=== PATIENT | male | born 1985 | race African-American/Black ===

== ENCOUNTER 2024-11-22 10:45 | Outpatient (CLI) | payer OTHER, SELFPAY ==
--- OUTSIDE RECORDS SUMMARY | 2024-10-14 03:20 | XMS_ITS ---
Author Organization Formerly [facility], [facility] Address [address] [place] [address] Care Team Providers Care Vp Ad Products And Planning Name Role Phone Jono Da Silva Primary Care Provider Naida DA SILVA Unavailable Unavailable Austin Palacios Unavailable [phone] REASON FOR VISIT fasting labs Encounters Encounter Location Date Provider Diagnosis [address] [place] [address] 10/14/2024 Austin Palacios Plan Of Treatment No Information Progress Notes * Eufemia HOGUEDOB:[birth year] (39 yo M)Acc No.[id number]:10/14/2024 UNLOCKED PROGRESS NOTE Patient: Eufemia JESUS Provider: Denise Palacios APN :1985 A ge:38 Y S ex:Male Date:10/14/2024 Address:[address] [place], [place] [id number] Pcp:Jono Da Silva Check In:07:53 AM 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 Fasting labs. * Medical History: Objective: * Vitals: Assessment: Plan: * Treatment: * * Electronic signature of Steven Palacios on 11/22/2024 at 11:30 AM CDT Sign off status: Pending * Provider: Denise Palacios APN Date: 0 10/14/2024 Generated for Printi ng/Faxing/eTransmitting on: 0 11/22/2024 11:30 AM CDT
--- OUTSIDE RECORDS SUMMARY | 2024-10-18 08:40 | XMS_ITS ---
Author Organization [facility] Address [address] [place] [address] Care Team Providers Care Code Number Stamper Name Role Phone Jono Da Silva Primary Care Provider [phone] Naida DA SILVA Unavailable Unavailable Brooke Machado Unavailable [phone] REASON FOR VISIT 1 week f/u Medications Medication SIG (Take, Route, Frequency, Duration) Notes Start Date End Date Status traZODone HCl 100 MG 1 tablet at bedtime Orally Once a day; Duration: 30 days As needed send to cru Active Escitalopram Oxalate 20 MG 1 tablet Orally Once a day; Duration: 30 days send to cru Active Naproxen 500 MG 1 tablet with food or milk as needed Orally every 12 hrs; Duration: 14 days Active busPIRone HCl 5 MG 1 tablet Orally 3 times a day; Duration: 30 days send to cru Active ARIPiprazole 15 MG 1 tablet at bedtime Orally Once a day; Duration: 30 days increased again today, deilver to U Active Cephalexin 500 MG 1 capsule Orally every 6 hrs Active traMADol HCl 50 MG 1 tablet as needed Orally 3 times a day Active Acetaminophen 500 MG 1 tablet as needed Orally every 6 hrs Active Loperamide HCl 2 MG 1 capsule as needed Orally Four times a day; Duration: 10 days 09/30/2024 Active Lidocaine 5 % 1 patch remove after 12 hours Externally Once a day Active hydrOXYzine Pamoate 25 MG 1-2 capsules Orally every 4 hours as needed for anxiety, agitation, or inability to sleep. Do not give within 4 hours of diphenhydramine.; Duration: 30 days 09/13/2024 Active Nicotine 21 MG/24HR 1 patch to skin. Transdermal Once a day, removing at bedtime; Duration: 28 days 09/13/2024 Active Naloxone HCl 4 MG/0.1ML as directed Nasally Active Melatonin 5 MG 1 tablet at bedtime as needed Orally Once a day; Duration: 30 days 09/13/2024 Active Multi Vitamin - 1 tablet Orally Once a day; Duration: 30 days 09/13/2024 Active Nicotine Polacrilex 4 MG Chew 1 piece as needed for nicotine cravings Mouth/Throat up to every hour (max of 20 pieces per day); Duration: 7 days 09/13/2024 Active Encounters Encounter Location Date Provider Diagnosis [facility] [address], [place] [address] 10/18/2024 Brooke Machado Plan Of Treatment No Information Progress Notes * Eufemia HOGUEDOB:[birth year] (39 yo M)Acc No.[id number]:10/18/2024 UNLOCKED PROGRESS NOTE Patient: Te LINN Eufemia Provider: JAIME Moreno :1985 A ge:38 Y S ex:Male Date:10/18/2024 Address:[address] [place], [place] [id number] Pcp:Jono Da Silva Subjective: * Chief Complaints: * 1 . 1 week f/u. * Medical History: * Medications: T aking Nicotine Polacrilex 4 MG Gum Chew 1 piece as needed for nicotine cravings Mouth/Throat up to every hour (max of 20 pieces per day) , Taking Multi Vitamin - Tablet 1 tablet Orally Once a day , Taking Melatonin 5 MG Tablet 1 tablet at bedtime as needed Orally Once a day , Taking Nicotine 21 MG/24HR Patch 24 Hour 1 patch to skin. Transdermal Once a day, removing at bedtime , Taking hydrOXYzine Pamoate 25 MG Capsule 1-2 capsules Orally every 4 hours as needed for anxiety, agitation, or inability to sleep. Do not give within 4 hours of diphenhydramine. , Taking Naloxone HCl 4 MG/0.1ML Liquid as directed Nasally , Taking Cephalexin 500 MG Capsule 1 capsule Orally every 6 hrs , Taking Acetaminophen 500 MG Tablet 1 tablet as needed Orally every 6 hrs , Taking traMADol HCl 50 MG Tablet 1 tablet as needed Orally 3 times a day , Taking Lidocaine 5 % Patch 1 patch remove after 12 hours Externally Once a day , Taking Loperamide HCl 2 MG Capsule 1 capsule as needed Orally Four times a day , Taking Naproxen 500 MG Tablet 1 tablet with food or milk as needed Orally every 12 hrs , Taking ARIPiprazole 15 MG Tablet 1 tablet at bedtime Orally Once a day , Notes to Pharmacist: increased again today, deilver to MRU, Taking busPIRone HCl 5 MG Tablet 1 tablet Orally 3 times a day , Notes to Pharmacist: send to cru, Taking Escitalopram Oxalate 20 MG Tablet 1 tablet Orally Once a day , Notes to Pharmacist: send to cru, Taking traZODone HCl 100 MG Tablet 1 tablet at bedtime Orally Once a day As needed, Notes to Pharmacist: send to cru Objective: * Vitals: Assessment: Plan: * Treatment: * * Electronic signature of Brooke Machado , [id number] on 11/22/2024 at 11:30 AM CDT Sign off status: Pending * Provider: CELSO Moreno Date: 0 10/18/2024 Generated for Gigi grigsby/Areli/Gregory on: 0 11/22/2024 11:30 AM CDT
--- OUTSIDE RECORDS SUMMARY | 2024-11-22 11:30 | XMS_ITS | Patient Health Record ---
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 is recommended for continuous pain relief). Oxygen-May administer oxygen 2L/min via nasal cannula if O2 saturation is less than 92%, AND client complains of shortness of breath. Target O2 saturation is 94-98%. Caution: Remember too much oxygen can be detrimental to a client with COPD. Oxygen is a drug and should be delivered by trained staff only. Nurses may remove superficial splinters and sutures from skin lacerations. May apply gauze or bandages to any weeping wounds. Contact nursing if there is pus, a foul odor, increased pain/redness/swelli ng, or if soaking through bandages. 09/21/2024 Mood disorder (ICD-10 - F39) At first Anthony declined any medications. DIscussed that I think his mind is racing and his thoughts are a bit jumbled. Disccused that aripiprazole may help his mind slow down so thoughts come at a reasonable pace and it will be easier to participate in the program when he can listen and retain formation. 09/30/2024 Pre-diabetes (ICD-10 - R73.09) - Discussed weight loss techniques including increased physical activity, healthy diet. Encouraged patient to aim for a goal of 150 minutes of moderate-intensity exercise and 2 days of strength training. Educated them on the importance of starting small and building on their successes. - Discussed healthier eating habits including frequent meals which are carb/protein balanced. Discussed avoidance of simple carbohydrates, encouraged portion-controlled complex carbohydrates. - Recommended increasing water intake and avoiding sugary beverages, excess caffeine and alcohol intake 10/12/2024 Over weight (ICD-10 - E66.3) 10/11/2024 Substance use disorder (ICD-10 - F19.90) 10/05/2024 Substance use disorder (ICD-10 - F19.90) 10/05/2024 Physical exam (ICD-10 - Z00.00) 10/11/2024 Physical exam (ICD-10 - Z00.00) 09/30/2024 Hx of bacterial endocarditis (ICD-10 - Z86.79) 09/21/2024 Substance use disorder (ICD-10 - F19.90) 09/30/2024 Family history of heart disease (ICD-10 - Z82.49) 09/30/2024 Over weight (ICD-10 - E66.3) 09/13/2024 Other Clinician met w ith client to assess needs for residential services. Clinician gathered information regarding historical presentation of mental health and substance use symptoms including withdrawal, HIV Risk assessment, psychiatric hospitalization history and presenting concern. Clinician conducted PHQ9 and CSSRS assessments as well as social drivers of health screening for the purposes of identifying additional service needs. 09/21/2024 Other SGA SE- Discussed risks, benefits and side effects. Discussed possible weight gain leading to lipid and glucose changes, involuntary movements, anticholinergic affects and rare CV events, NMS, Seizure. SSRI Discussed possible side effects: GI upset, headache, decreased libido/anorgasmia, weight gain, signs of serotonin syndrome and risk of activation to suicidality Client may self-administer their own medications. Call for sooner apt if medication has negative effect or client not able to tolerate. Call 911 or go to the closest emergency room right away if you feel like you want to hurt yourself or others. Go to the closest emergency room or call if you have a sudden change in mood or behavior. Confirmed knowledge of yeppt hotline [phone] for clients 20 and under and [employer] Crisis line 826-045-6154 and awareness of 988. Plan Of Treatment No Information Insurance Providers Payer Name Payer Address Payer Phone Subscriber Number Group Number Insured Name Patient Relationship to Insured Coverage Start Date Coverage End Date [employer] [address] [place] [phone] [id number] Eufemia Moore Self - patient is the insured 5 [employer] [address] [place] [phone] [id number] Eufemia Moore Self - patient is the insured 5 [employer] [address] [place] [phone] [id number] Eufemia Moore Self - patient is the insured 5 Medical (General) History Medical History History ICD Code R 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 06/2024
--- OUTSIDE RECORDS SUMMARY | 2024-11-22 11:31 | XMS_ITS | Encounter Summary ---
Author Organization [facility] Address [address] [place] [address] Phone Care Team Providers Care Estate And Trust Tax Principal Name Role Phone Edward Alejandre MD Primary Care Provider Encounter Details Date Type Department Care Team (Late st Contact Info) Description 11/17/2024 Results Follow-Up [facility] Medicine Dermatology [address] [place] [address] Mustapha Peters MD PhD [address] [place] [address] Surgical pathology Social History Tobacco Use Types Packs/Day Years Used Date Smoking Tobacco: Some Days Cigarettes Smokeless Tobacco: Never Alcohol Use Standard Drinks/Week Comments Not Currently 1 (1 standard drink = 0.6 oz pur e alcohol) [facility] Utilities Answer Date Recorded In the past 12 months has E Ink, gas, oil, or water [employer] threatened to shut off services in your home? No 07/11/2024 Social Connection and Isolation Panel Answer Date Recorded In a typical week, how many times do you talk on the phone with family, friends, or neighbors? More than three times a week 07/11/2024 How often do you get togethe r with friends or relatives? More than three times a week 07/11/2024 How often do you attend chur ch or protestant services? Never 07/11/2024 Do you belong to any clubs o r organizations such as temple groups, unions, fraternal or athletic groups, or school groups? No 07/11/2024 How often do you attend meet ings of the clubs or organizations you belong to? Never 07/11/2024 Are you , , di vorced, , never , or living with a partner? Never 07/11/2024 AUDIT-C Answer Date Recorded Q1: How often do you have a drink containing alcohol? 4 or more times a week 07/09/2024 Q2: How many drinks containi ng alcohol do you have on a typical day when you are drinking? 1 or 2 Q3: How often do you have si x or more drinks on one occasion? Never 07/09/2024 Overall Financial Resource Strain (CARDIA) Answe r Date Recorded How hard is it for you to pa y for the very basics like food, housing, medical care, and heating? Somewhat hard 07/11/2024 Hunger Vital Sign Answer Date Recorded Within the past 12 months, y ou worried that your food would run out before you got the money to buy more. Never true 07/12/19 25 Within the past 12 months, t he food you bought just didn't last and you didn't have money to get more. Never true 07/11/2024 PRAPARE - Transportation Answer Date Re corded In the past 12 months, has l ack of transportation kept you from medical appointments or from getting medications? Yes 07/25 In the past 12 months, has l ack of transportation kept you from meetings, work, or from getting things needed for daily living? Yes 08/12/2024 Housing Stability Vital Sign Answer Luigi e Recorded In the last 12 months, was t here a time when you were not able to pay the mortgage or rent on time? Yes 08/12/2024 In the past 12 months, how m any times have you moved where you were living? 5 08/12/2024 At any time in the past 12 m [facility], were you homeless or living in a senior care (including now)? Yes 08/12/2024 Personal Safety Answer Date Recorded Have you ever been in or are you currently in a harmful physical or emotional relationship or is someone making you feel afraid or unsafe? Denies 09/10/2024 Education Answer Date Recorded What is the highest level of school you have completed or the highest degree you have received? High school graduate 07/26/2023 Sex and Gender Information Value Date Recorded Sex Assigned at Not on file Legal Sex Male 7:47 AM [employer] Gender Identity Not on file Sexual Orientation Not on file documented as of this encounter Plan of Treatment Not on file documented as of this encounter Visit Diagnoses Not on filedocumented in this encounter Care Teams Estate And Trust Tax Principal Relationship Specialty Start Date End Date Edward Alejandre MD [facility] [place] [address] PCP - General 08/13/24 documented as of this encounter
--- OUTSIDE RECORDS SUMMARY | 2024-11-22 11:31 | XMS_ITS | Clinical Summary ---
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 [id number] Reading Location: [place] [address] Procedure Note Luis Rudd MD - 09/09/2024 EXAM DESCRIPTION: XR CHEST PA LATERAL 2 VIEWS REASON FOR STUDY: chest pain Patient chart states: Pt from home with chest pain, chronic back pain,and needs oxy and antibitoics. History shows recent admission and treatmentfor septic arthritis of sacroiliac joint. States its all pretty serious. Ptis awake, alert, NAD. TECHNIQUE: PA and lateral radiographic view(s) of the chest. COMPARISON: 07/08/2024 FINDINGS: LUNGS: No focal opacity, pleural effusion, or pneumothorax. HEART/MEDIASTINUM: Cardiac silhouette normal in size. Mediastinal andhilar contours appear normal. LINES/TUBES: None. BONES: No acute osseous abnormality. IMPRESSION: No acute cardiopulmonary abnormality. THIS IS AN ELECTRONICALLY VERIFIED FINAL REPORT 09/09/2024 6:58 PM - Electronically signed by Luis Rudd M.D. BS T: Report ID: [id number] Reading Location: [place] [address] Jono Dinero DO IMG XR PROCEDURES Final Res ult * ECG 12 lead (09/09/2024 5:30 PM CDT) Ventricular Rate EKG/Min 113 BPM [facility] Atrial Rate 113 BPM [facility] IA-Interval (MSEC) 144 ms [facility] QRS-Interval (MSEC) 86 ms [facility] QT-Interval (MSEC) 310 ms [facility] QTc 425 ms [facility] P [place] 70 degrees [facility] R [place] 41 degrees [facility] T [place] 79 degrees [facility] Diagnosis Sinus tachycardia Nonspecific T wave abnormality Abnormal ECG No previous ECGs available Confirmed by VIV REILLY M.D. ([id number]) on 09/12/2024 11:02:23 PM [facility] 09/09/2024 5:30 PM CDT 09/12/2024 11:02 PM CDT Result [facility] Jono Dinero DO ECG ORDERABLES Final Resul t [facility] * Troponin T high-sensitivity series (baseline, 2hr, 4hr, 6hr) (09/09/2024 5:20 PM CDT) Trop T hs 7 <=22 ng/L Comment: Interpretive Data For further hscTnT resources including the diagnostic algorithm and an aid in interpretation, copy and paste this link: [email or web address].testcatalog.org/[email or web address] Current Interpretive Data last revised 2020. Blood 09/09/2024 5:20 PM CDT 09/09/2024 5:31 PM CDT us Jono Dinero DO LAB BLOOD ORDERABLES Final Result Performing Organization Address [facility] Co de Phone Number GELA [address] [address] * Blood smear review (09/09/2024 5:20 PM CDT) RBC morphology Normal Platelet estimate Automated Count Confirmed GELA Blood 09/09/2024 5:20 PM CDT 09/09/2024 5:31 PM CDT Jono Dinero LAB BLOOD ORDERABLES Final Result Performing Organization Address [facility] de Phone Number GELA [address] [address] * eGFR (09/09/2024 5:20 PM CDT) eGFR >90 >=60 mL/min/1. 73 m2 Comment: Interpretive Data Reference Interval Normal >/= 90 mL/min/1.73m2 Mildly decreased* 60 - 89 mL/min/1.73m2 Mildly to moderately decreased 45 - 59 mL/min/1.73m2 Moderately to severely decreased 30 - 44 mL/min/1.73m2 Severely decreased 15 - 29 mL/min/1.73m2 Kidney Failure < 15 mL/min/1.73m2 *Relative to young adult level Estimated glomerular filtration rate is determined by the 2020 CKD-EPI equation recommended by the National Kidney Foundation (A Unifying Approach to GFR Estimation: Recommendations of the NKF-ASK Task Force on Reassessing the Inclusion of Race in Diagnosing Kidney Disease, JASN 2020). The CKD-EPI equation should not be used for patients with unstable renal function and has not been validated in children and those over 70. Current interpretive data was last reviewed 2020. Blood 09/09/2024 5:20 PM CDT 09/09/2024 5:31 PM CDT us Jono Dinero DO LAB BLOOD ORDERABLES Final Result Performing Organization Address City/[facility] Co de Phone Number GELA [address] [facility] Department [place] [address] * Differential, auto (09/09/2024 5:20 PM CDT) Neutrophil abs 3.59 1.50 - 6.50 K/cumm Imm gran abs 0.01 0.00 - 0.10 K/cumm [facility] Lymphocyte abs 1.84 0.80 - 3.30 K/cumm [facility] Monocyte abs 0.38 0.20 - 0.80 K/cumm [facility] Eosinophil abs 0.04 0.00 - 0.50 K/cumm [facility] Basophil abs 0.02 0.00 - 0.10 K/cumm [facility] Neutrophil pct 61.0 % [facility] Comment: Interpretive Data Percent cell count reference ranges are not reported, since discordance with absolute values may lead to misinterpretation of CBC data. Current Interpretive Data was last revised on 2017. Imm gran pct 0.2 % [facility] Comment: Interpretive Data Percent cell count reference ranges are not reported, since discordance with absolute values may lead to misinterpretation of CBC data. Current Interpretive Data was last revised on 2017. Lymphocyte pct 31.3 % [facility] Comment: Interpretive Data Percent cell count reference ranges are not reported, since discordance with absolute values may lead to misinterpretation of CBC data. Current Interpretive Data was last revised on 2017. Monocyte pct 6.5 % [facility] Comment: Interpretive Data Percent cell count reference ranges are not reported, since discordance with absolute values may lead to misinterpretation of CBC data. Current Interpretive Data was last revised on 2017. Eosinophil pct 0.7 % [facility] Comment: Interpretive Data Percent cell count reference ranges are not reported, since discordance with absolute values may lead to misinterpretation of CBC data. Current Interpretive Data was last revised on 2017. Basophil pct 0.3 % [facility] Comment: Interpretive Data Percent cell count reference ranges are not reported, since discordance with absolute values may lead to misinterpretation of CBC data. Current Interpretive Data was last revised on 2017. Blood 09/09/2024 5:20 PM CDT 09/09/2024 5:31 PM CDT [facility] Final Result Performing Organization Address City/[facility]/ZIP Co de Phone Number GELA [address] [place] [address] * (ABNORMAL) CBC with auto differential (09/09/2024 5:20 PM CDT) [facility] WBC 5.88 3.80 - 9.90 K/cumm Hgb 13.2 13.0 - 17.5 g/dL [facility] Hct 40.5 38.9 - 50.3 % [facility] Plt 110(L) 150 - 400 K/cumm [facility] MPV 11.4 9.1 - 12.3 fL [facility] RBC 5.02 4.30 - 5.80 M/cumm [facility] MCV 80.7(L) 81.3 - 96.4 fL [facility] MCH 26.3(L) 27.1 - 33.3 pg [facility] MCHC 32.6 32.3 - 35.7 g/dL [facility] RDW CV 14.0 11.1 - 14.9 % [facility] RDW SD 40.8 35.7 - 48.1 fL [facility] NRBC abs 0.00 0.00 - 0.01 K/cumm [facility] Blood Venous blood specimen / Unknown 09/09/2024 5:20 PM CDT 09/09/2024 5:31 PM CDT [facility] Edited Result - Final Performing Organization Address City/[facility]/ZIP Co de Phone Number GELA [address] [place] [address] * (ABNORMAL) Comprehensive metabolic panel (09/09/2024 5:20 PM CDT) [facility] Sodium 142 135 - 145 mmol/L Potassium, pl 3.9 3.3 - 4.9 mmol/L [facility] Comment:Hemolyzed; Potassium value may be falsely elevated by as much as 1.0 mmol/L. Suggest redraw and reanalysis. Chloride 107 97 - 110 mmol/L [facility] CO2 21(L) 22 - 32 mmol/L [facility] Anion gap 14 2 - 15 mmol/L [facility] BUN 13 6 - 25 mg/dL [facility] Creatinine 1.03 0.80 - 1.30 mg/dL [facility] Glucose 122 70 - 199 mg/dL [facility] Comment: Interpretive Data Fasting glucose >/= 126 mg/dl is diagnostic for diabetes. Fasting is defined as no caloric intake for at least 8 hours. Fasting glucose between 100 mg/dl to 125 mg/dl is diagnostic of prediabetes. In a patient with classic symptoms of hyperglycemia or hyperglycemic crisis, a random glucose >/= 200 mg/dl is diagnostic for diabetes. In the absence of unequivocal hyperglycemia, results should be confirmed by repeat testing. The classification and Diagnosis of Diabetes Diabetes Care 202; 46: S19-S40. Current interpretive data was last revised 2022. Calcium 9.2 8.5 - 10.3 mg/dL [facility] Bilirubin, total 0.3 0.1 - 1.2 mg/dL [facility] Protein, pl 7.2 6.5 - 8.5 g/dL [facility] Albumin 4.7 3.5 - 5.0 g/dL [facility] Alk phos 97 40 - 130 Units/L [facility] ALT 8 7 - 55 Units/L [facility] AST 21 10 - 50 Units/L [facility] Blood 09/09/2024 5:20 PM CDT 09/09/2024 5:31 PM CDT Jono Dinero DO LAB BLOOD ORDERABLES Final Result [facility] [address] [facility] Department [place] [address] * eGFR (08/23/2024 4:33 AM CDT) eGFR >90 >=60 mL/min/1. 73 m2 Comment: Interpretive Data Reference Interval Normal >/= 90 mL/min/1.73m2 Mildly decreased* 60 - 89 mL/min/1.73m2 Mildly to moderately decreased 45 - 59 mL/min/1.73m2 Moderately to severely decreased 30 - 44 mL/min/1.73m2 Severely decreased 15 - 29 mL/min/1.73m2 Kidney Failure < 15 mL/min/1.73m2 *Relative to young adult level Estimated glomerular filtration rate is determined by the 2020 CKD-EPI equation recommended by the National Kidney Foundation (A Unifying Approach to GFR Estimation: Recommendations of the NKF-ASK Task Force on Reassessing the Inclusion of Race in Diagnosing Kidney Disease, JASN 2020). The CKD-EPI equation should not be used for patients with unstable renal function and has not been validated in children and those over 70. Current interpretive data was last reviewed 2020. Blood 08/23/2024 4:33 AM CDT 08/23/2024 4:47 AM CDT us Katheryn Shannan De La Rosa MD LAB BLOOD ORDERABLES Pippa mahmood Result [place] [id number] [facility] Department [place] [address] * Differential, auto (08/23/2024 4:33 AM CDT) Neutrophil abs 2.44 1.50 - 6.50 K/cumm Imm gran abs 0.02 0.00 - 0.10 K/cumm [facility] Lymphocyte abs 2.72 0.80 - 3.30 K/cumm [facility] Monocyte abs 0.55 0.20 - 0.80 K/cumm [facility] Eosinophil abs 0.17 0.00 - 0.50 K/cumm [facility] Basophil abs 0.02 0.00 - 0.10 K/cumm [facility] Neutrophil pct 41.3 % [facility] Comment: Interpretive Data Percent cell count reference ranges are not reported, since discordance with absolute values may lead to misinterpretation of CBC data. Current Interpretive Data was last revised on 2017. Imm gran pct 0.3 % [facility] Comment: Interpretive Data Percent cell count reference ranges are not reported, since discordance with absolute values may lead to misinterpretation of CBC data. Current Interpretive Data was last revised on 2017. Lymphocyte pct 45.9 % [facility] Comment: Interpretive Data Percent cell count reference ranges are not reported, since discordance with absolute values may lead to misinterpretation of CBC data. Current Interpretive Data was last revised on 2017. Monocyte pct 9.3 % [facility] Comment: Interpretive Data Percent cell count reference ranges are not reported, since discordance with absolute values may lead to misinterpretation of CBC data. Current Interpretive Data was last revised on 2017. Eosinophil pct 2.9 % [facility] Comment: Interpretive Data Percent cell count reference ranges are not reported, since discordance with absolute values may lead to misinterpretation of CBC data. Current Interpretive Data was last revised on 2017. Basophil pct 0.3 % [facility] Comment: Interpretive Data Percent cell count reference ranges are not reported, since discordance with absolute values may lead to misinterpretation of CBC data. Current Interpretive Data was last revised on 2017. Blood 08/23/2024 4:33 AM CDT 08/23/2024 4:47 AM CDT us Katheryn Shannan De La Rosa MD LAB BLOOD ORDERABLES Pippa mahmood Result [place] [id number] [facility] Department [place] [address] * (ABNORMAL) CBC with auto differential (08/23/2024 4:33 AM CDT) Pathologist [facility] WBC 5.92 3.80 - 9.90 K/cumm Hgb 13.6 13.0 - 17.5 g/dL [facility] Hct 42.2 38.9 - 50.3 % [facility] Plt 152 150 - 400 K/cumm [facility] MPV 11.1 9.1 - 12.3 fL [facility] RBC 5.10 4.30 - 5.80 M/cumm [facility] MCV 82.7 81.3 - 96.4 fL [facility] MCH 26.7(L) 27.1 - 33.3 pg [facility] MCHC 32.2(L) 32.3 - 35.7 g/dL [facility] RDW CV 14.1 11.1 - 14.9 % [facility] RDW SD 42.7 35.7 - 48.1 fL [facility] NRBC abs 0.00 0.00 - 0.01 K/cumm [facility] Blood 08/23/2024 4:33 AM CDT 08/23/2024 4:47 AM CDT Katheryn De La Rosa MD LAB BLOOD ORDERABLES Pippa l Result Performing Organization Address City/[facility] Co de Phone Number IVANA[address] [place] [address] * Erythrocyte sedimentation rate (08/23/2024 4:33 AM CDT) Pathologist [facility] Erythrocyte sedimentation rate 11 1 - 15 mm/hr Blood 08/23/2024 4:33 AM CDT 08/23/2024 4:47 AM CDT Katheryn De La Rosa MD LAB BLOOD ORDERABLES Pippa l Result Performing Organization Address [facility] Co de Phone Number [address] [place] [address] * CRP (acute phase) (08/23/2024 4:33 AM CDT) Pathologist [facility] CRP 1.3 <=10.0 mg/L Blood 08/23/2024 4:33 AM CDT 08/23/2024 4:47 AM CDT Katheryn De La Rosa MD LAB BLOOD ORDERABLES Pippa l Result Performing Organization Address [facility] Co de Phone Number [address] [place] [address] * Comprehensive metabolic panel (08/23/2024 4:33 AM CDT) Pathologist [facility] Sodium 138 135 - 145 mmol/L Potassium, pl 4.7 3.3 - 4.9 mmol/L [facility] Comment:Hemolyzed; Potassium value may be falsely elevated by as much as 1.0 mmol/L. Suggest redraw and reanalysis. Chloride 102 97 - 110 mmol/L [facility] CO2 26 22 - 32 mmol/L [facility] Anion gap 10 2 - 15 mmol/L [facility] BUN 18 6 - 25 mg/dL [facility] Creatinine 0.93 0.80 - 1.30 mg/dL [facility] Glucose 119 70 - 199 mg/dL [facility] Comment: Interpretive Data Fasting glucose >/= 126 mg/dl is diagnostic for diabetes. Fasting is defined as no caloric intake for at least 8 hours. Fasting glucose between 100 mg/dl to 125 mg/dl is diagnostic of prediabetes. In a patient with classic symptoms of hyperglycemia or hyperglycemic crisis, a random glucose >/= 200 mg/dl is diagnostic for diabetes. In the absence of unequivocal hyperglycemia, results should be confirmed by repeat testing. The classification and Diagnosis of Diabetes Diabetes Care 2021; 46: S19-S40. Current interpretive data was last revised 2022. Calcium 9.4 8.5 - 10.3 mg/dL [facility] Bilirubin, total 0.2 0.1 - 1.2 mg/dL [facility] Protein, pl 6.9 6.5 - 8.5 g/dL [facility] Albumin 4.2 3.5 - 5.0 g/dL [facility] Alk phos 92 40 - 130 Units/L [facility] ALT 8 7 - 55 Units/L [facility] AST 28 10 - 50 Units/L [facility] Comment:Hemolyzed; result ma y be falsely elevated Blood 08/23/2024 4:33 AM CDT 08/23/2024 4:47 AM CDT us Katheryn Shannan De La Rosa MD LAB BLOOD ORDERABLES Pippa mahmood Result [facility] [address] [facility] Department [place] [address] * Hepatitis panel, acute Blood (07/11/2024 12:15 PM CDT) Hep A IgM Nonreactive Nonreactive Comment: Interpretive Data: If Hep A IgM Ab is reported as Equivocal, a new sample should be drawn in two weeks for testing. Current interpretive data was last revised on 19. Hep B core IgM Nonreactive Nonreactive [facility] Comment: Interpretive Data If HepB Core IgM Ab is reported as Equivocal, a new sample should be drawn in two weeks for testing. Current interpretive data was last revised on 19. Hep C Ab Nonreactive Nonreactive [facility] Comment: Antibodies to HCV not detected. Does NOT exclude the possibility of recent exposure to HCV. Current interpretive data was last revised on 21 Interpretive Data Nonreactive: Antibodies to HCV not detected. Does NOT exclude the possibility of recent exposure to HCV. Equivocal: Equivocal for HCV antibodies. Supplemental molecular testing will be automatically performed to determine infection status in accordance with current CDC screening recommendations. Reactive: Positive for HCV antibodies. This may represent current or past HCV infection. Supplemental molecular testing will be automatically performed to determine current infection status in accordance with current CDC screening recommendations. Interpretive data was last revised on 2019. HepBsAg Nonreactive Nonreactive [facility] Blood 07/11/2024 12:1 5 PM CDT 07/11/2024 12:20 PM CDT Sylvain Joy MD LAB MICROBIOLOGY - GENERAL O RDERABLES Final Result [facility] [address] [facility] Department [place] [address] from Last 3 Months or Most Recently Relevant to Health Maintenance Insurance [facility] Advance Directives For more information, please contact: [phone] * Full Code (Latest Code Status on File) Date Activated Date Inactivated Comments 07/09/2024 7:48 AM 08/23/2024 5:59 PM * Full Code Date Activated Date Inactivated Comments 07/25/2023 9:11 AM 07/27/2023 8:02 PM Care Teams Parts Department Manager Relationship Specialty Start Date End Date Edward Alejandre MD [facility] [place] [address] PCP - General 08/13/24
--- OUTSIDE RECORDS SUMMARY | 2024-11-22 11:31 | XMS_ITS | Clinical Summary ---
Author Organization [facility] Address [address] [place] [address] Phone Care Team Providers Care Electrician Helper Name Role Phone Provider, None Primary Care Provider Unavailabl e Allergies No known active allergies Medications ondansetron (ZOFRAN-ODT) 4 MG TABLET DISPERSIBLE Take 1 Tablet by mouth every 8 hours as needed for Nausea - 1st line. 10 Tablet 07/13/2023 Active naproxen (NAPROSYN) 500 MG Tablet Take 1 Tablet by mouth 2 times daily (with meals). 30 Tablet 11/10/2023 Active Social History Tobacco Use Types Packs/Day Years Used Date Smoking Tobacco: Unknown Smokeless Tobacco: Never Tobacco Cessation:Counseling Given: Not Answered Alcohol Use Standard Drinks/Week Comments Yes 0 (1 standard drink = 0.6 oz pur e alcohol) Sex and Gender Information Value Date Recorded Sex Assigned at Not on file Legal Sex Male 1:52 PM CDT Gender Identity Not on file Sexual Orientation Not on file Last Filed Vital Signs Vital Sign Reading Time Taken Comments Blood Pressure 140/85 11/10/2023 3:05 AM CDT Pulse 82 11/10/2023 3:05 AM CDT Temperature 36 C (96.8 F) 11/10/2023 1:26 AM CDT Respiratory Rate 18 11/10/2023 3:05 AM CDT Oxygen Saturation 100% 11/10/2023 3:05 AM CDT Inhaled Oxygen Concentration - - Weight 95.3 kg (210 lb) 11/10/2023 1:26 AM CDT Height 177.8 cm (5' 10) 07/13/2023 2:07 PM CDT Body Mass Index 30.13 07/13/2023 2:07 PM CDT Plan of Treatment Health Maintenance Due Date Last Done Comments Hepatitis C Virus (HCV) Screening 1986 Hepatitis B Immunization (1 of 3 - 19+ 3-dose series) 2005 Human Papillomavirus (HPV) Immunization (1 - 3-dose SCDM series) 2013 Influenza Immunization (#1) 2024 SARS-COV-2 Immunization (3 - 2024- season) 2024 02/13/2022, 11/20/2021 Respiratory Syncytial Virus (RSV) Immunization (Adult) (1 - 1-dose 75+ series) 2061 TdaP Immunization Completed 07/28/2023, 08/13/2020 Meningococcal Immunization (ACWY) Aged Out No longer eligible b ased on patient's age to complete this topic Pneumococcal Immunization Combined Aged Out No longer eligible b ased on patient's age to complete this topic Rotavirus Immunization Aged Out No lo nger eligible based on patient's age to complete this topic Insurance [place] Care Teams Electrician Helper Relationship Specialty Start Date End Date Provider, None PA PCP - General 07/13/23
== END 2024-11-22 10:46 | disposition home or self-care (01) ==
PROVIDERS: Visit Provider Otolaryngology
DX: H90.5 Unspecified sensorineural hearing loss (principal)
CPT/HCPCS: 92557; 92567